=== PATIENT | male | born 2000 | race Caucasian/White ===

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

== ENCOUNTER → 2021-12-18 14:45 | Outpatient (CLI) | payer BC, SELFPAY ==
--- NOTE | 2021-12-18 15:02 | ECG_ITS ---
APPROVED REPORT Exam: Resting ECG HR:56 bpm ECG Measurements Heart Rate 56 AXES WA 136 P 75 QRSd 91 QRS 95 QT 406 T 6 QTc 397 Conclusion SINUS BRADYCARDIA WITH MARKED SINUS ARRHYTHMIA BORDERLINE RIGHT AXIS DEVIATION [QRS AXIS > 90] Otherwise a normal ECG Electronically signed by : Parth Davis MD 12/22/2021 10:41:46
== END ==
PROVIDERS: PCP Internal Medicine; Visit Provider Internal Medicine
DX: R00.2 Palpitations (principal); R55 Syncope and collapse
CPT/HCPCS: 93005

== ENCOUNTER 2024-06-25 13:40 | Outpatient (CLI) | payer BC, SELFPAY ==
--- NOTE | 2024-06-25 13:44 | XR_ITS ---
FINAL REPORT TECHNIQUE: 5 views CLINICAL HISTORY: felt pop in lower back while lifting weights FINDINGS: There is no fracture present. There is no malalignment. The disc spaces are well-preserved. There is moderate facet sclerosis. IMPRESSION: No acute process. Reviewed, Interpreted and Dictated by Ko Owen MD Transcribed by Yadira Arias Authenticated and [facility]
== END 2024-06-25 23:59 | disposition home or self-care (01) ==
LOC: RAD 13:41
PROVIDERS: PCP Internal Medicine; Visit Provider Nurse Practitioner
DX: M54.50 Low back pain, unspecified (principal)
CPT/HCPCS: 72110

== ENCOUNTER → 2024-10-06 13:48 | Outpatient (REF) | payer SELFPAY ==
--- OUTSIDE RECORDS SUMMARY | 2024-10-06 13:50 | XMS_ITS | Clinical Summary ---
Author Organization [facility] [place] [address] Care Team Providers Care Sketcher Name Role Phone Unavailable Primary Care Provider Unavailabl e Social History Tobacco Use Types Packs/Day Years Used Date Smoking Tobacco: Never Assessed Sex and Gender Information Value Date Recorded Sex Assigned at Not on file Legal Sex Male 8:26 AM EDT Gender Identity Not on file Sexual Orientation Not on file Plan of Treatment Health Maintenance Due Date Last Done Comments Annual Wellness Exam 2004 HPV (1 - Male 3-dose series) 2016 Meningococcal B Vaccine (1 o f 2 - Standard) 2017 DTaP/TDaP/Td (1 - Tdap) 2020 Hepatitis B Vaccine (1 of 3 - 19+ 3-dose series) 2020 COVID-19 Vaccine ( - 2023-2 5 season) 2023 Influenza Vaccine (#1) 2024 Pneumococcal Vaccine 0-49 Aged Out No longer eligible based on patient's age to complete this topic
--- OUTSIDE RECORDS SUMMARY | 2024-10-06 13:51 | XMS_ITS | Clinical Summary ---
Author Organization [employer] ([place], [place], [place], [place]) Address [address] [place] [address] Care Team Providers Care Back Sizer Name Role Phone Parth Davis MD Primary Care Provider [phone] Allergies No known active allergies Medications propranoloL (INDERAL) 10 MG tabletIndicatio ns:Palpitations Take 1 tablet (10 mg total) by mouth 2 (two) times daily as needed TAKE 1 TABLET (10 MG TOTAL) BY MOUTH 2 (TWO) TIMES DAILY NEEDED (PALPITATIONS ). Courtesy fill.. 180 tablet 11/18/2023 Active Active Problems Problem Noted Date Diagnosed Date Palpitation 04/26/2022 Near syncope 04/26/2022 Intermittent chest pain 04/26/2022 Bradycardia 04/26/2022 Osteochondritis dissecans 05/06/2015 Family History Medical History Relation Name Comments Aortic aneurysm Father Heart attack Paternal Grandfather Hyperlipidemia Paternal Grandmother Hypertension Paternal Grandmother Stroke Paternal Grandmother Relation Name Status Comments Father Paternal Grandfather Paternal Grandmother Social History Tobacco Use Types Packs/Day Years Used Date Smoking Tobacco: Never Smokeless Tobacco: Never Alcohol Use Standard Drinks/Week Comments Yes 0 (1 standard drink = 0.6 oz pur e alcohol) Food Insecurity Answer Date Recorded Food run out past 12 months Not on file 03/11 Food did not last past 12 months Not on file 03/29/2023 Employment Answer Date Recorded Help finding and keeping a job Not on file 0 03/29/2023 Family and Community Support Answer Jonny e Recorded Help with Day to Day Activities Not on file 03/29/2023 Feeling Lonely or Isolated Not on file 03/29 Educational Attainment Answer Date Elias rded Speak language other than Irish at home Not on file 03/29/2023 Want help with school or training Not on file 03/29/2023 Substance Use Answer Date Recorded Used prescription meds for non-medical reasons N ot on file 03/29/2023 Used illegal drugs past 12 months Not on file 03/29/2023 Sex and Gender Information Value Date Recorded Sex Assigned at Not on file Legal Sex Male 7:48 PM CDT Gender Identity Not on file Sexual Orientation Not on file Last Filed Vital Signs Vital Sign Reading Time Taken Comments Blood Pressure 109/63 11/08/2022 10:22 AM EDT Pulse 72 11/08/2022 10:22 AM EDT Temperature - - Respiratory Rate - - Oxygen Saturation 98% 11/08/2022 10:22 AM EDT Inhaled Oxygen Concentration - - Weight 91.2 kg (201 lb) 11/08/2022 10:22 AM EDT Height 188 cm (6' 2 ) 11/08/2022 10:22 AM EDT Body Mass Index 25.81 11/08/2022 10:22 AM EDT Plan of Treatment Health Maintenance Due Date Last Done Comments Depression Screening (12+) 2013 HIV Screening 2016 Meningococcal B Vaccine (1 o f 2 - Standard) 2017 Hepatitis C Screening 07/18/2019 DTAP/TDAP/TD VACCINES (1 - Tdap) 2020 Tobacco Cessation Counseling and Screening (12+) 11/09/2023 11/08/2022 COVID-19 VACCINE (2 - 2023-2 5 season) 2023 12/01/2020 Influenza Vaccine (#1) 2024 Pneumococcal Vaccine: 0-49 Years Aged Out No longer eligible based on patient's age [place] [id number] BLUE CROSS/BLUE SHIELD Care Teams Back Sizer Relationship Specialty Start Date End Date Parth Davis MD [address] [place] [address] PCP - General General Internal Medicine 04/25/22
--- OUTSIDE RECORDS SUMMARY | 2024-10-06 13:51 | XMS_ITS | Referral Summary ---
Author Organization [employer] ([place], [place], [place], [place]) Address [address] [place] [address] Care Team Providers Care Toy Stuffer Name Role Phone Parth Davis MD Primary Care Provider [phone] Allergies No known active allergies Medications propranoloL [...] pain 04/26/2022 Bradycardia 04/26/2022 Osteochondritis dissecans 05/06/2015 Social History Tobacco Use Types Packs/Day Years [...] Date Elias rded Speak language other than Puerto Rican at home Not on file 03/29/2023 Want [...] 11/08/2022 10:22 AM EDT Plan of Treatment Not on file Insurance BLUE CROSS/BLUE SHIELD Care Teams Toy Stuffer Relationship Specialty Start Date End Date Parth Davis MD [address] [place] [address] PCP - General General Internal Medicine 04/25/22
--- OUTSIDE RECORDS SUMMARY | 2024-10-06 13:51 | XMS_ITS | Encounter Summary ---
Author Organization [employer] ([place], [place], [place], [place]) Address [address] [place] [address] Care Team Providers Care Warp Tying Machine Knotter Name Role Phone Parth Davis MD Primary Care Provider [phone] Reason for Visit * Reason Comments Medication Refill Encounter Details Date Type Department Care Team (Late st Contact Info) Description 11/16/2023 Refill [facility] Cardiology - [address] [place] [address] Maritza Sánchez MD [address] [place] [address] Palpitations Social History Tobacco Use Types Packs/Day Years [...] Date Elias rded Speak language other than Welsh at home Not on file 03/29/2023 Want [...] on file Sexual Orientation Not on file documented as of this encounter Plan of Treatment Not on file documented as of this encounter Visit Diagnoses Diagnosis Palpitations documented in this encounter Care Teams Warp Tying Machine Knotter Relationship Specialty Start Date End Date Parth Davis MD [address] [place] [address] PCP - General General Internal Medicine 04/25/22 documented as of this encounter
--- OUTSIDE RECORDS SUMMARY | 2024-10-06 13:51 | XMS_ITS | Clinical Summary ---
Author Organization [facility] Address [address] [place] [address] Care Team Providers Care Director Of Placement Name Role Phone Dread Vo M.D. Primary Care Provider Source Comments [facility] is fully rolled out with thefollowing exceptions:[facility] Allergies No known active allergies Medications oxyCODONE (ROXICODONE) 5 MG tablet Take 1 Tab (5 mg total) by mouth every 4 hours as needed for moderate pain. Was informed consent obtained? Yes If informed consent was not obtained, the applicable exemption is - Consent form was completed; no exemption needed 30 Tab 6 Active Active Problems Problem Noted Date Diagnosed Date Osteochondritis dissecans 05/06/2015 Social History Tobacco Use Types Packs/Day Years Used Date Smoking Tobacco: Never Intimate Partner Violence Answer Date R ecorded If you are in a relationship , do you feel safe in that relationship? Yes 12/28/2015 Safe in relationship? (18 and older) Not on file 12/28/2015 Safety and Environment Answer Date Elias rded Do you have any concerns of physical abuse, sexual abuse, or neglect of your child? No 12/28/2015 Adult hurting you or family (11-18) Not on file 12/28/2015 Someone touched you in a sexual way? (11-18) Not on file 12/28/2015 Someone hurting you or family (18 and older) Not on file 12/28/2015 Historical abuse worry Not on file 6 If you have firearms in the home, are they all in locked storage AND unloaded? Not on file 12/28/2015 Sex and Gender Information Value Date Recorded Sex Assigned at Not on file Legal Sex Male 12:29 PM EST Gender Identity Not on file Sexual Orientation Not on file Last Filed Vital Signs Vital Sign Reading Time Taken Comments Blood Pressure 93/52 05/24/2015 5:30 PM EDT Pulse 72 05/24/2015 5:30 PM EDT Temperature 36.1 C (97 F) 05/24/2015 5:00 PM EDT Respiratory Rate 16 05/24/2015 5:30 PM EDT Oxygen Saturation 99% 05/24/2015 5:45 PM EDT Inhaled Oxygen Concentration - - Weight 69.8 kg (153 lb 14.1 oz) 05/24/2015 9:38 AM EDT Height 166.8 cm (5' 5.67 ) 05/24/2015 9:38 AM ED T Body Mass Index 25.09 05/24/2015 9:38 AM EDT Plan of Treatment Health Maintenance Due Date Last Done Comments MMR IMMUNIZATION (1 of 1 - S tandard series) 2002 DTAP/Tdap/Td IMMUNIZATION (1 - Tdap) 2008 VARICELLA IMMUNIZATION (1 of 2 - 13+ 2-dose series) 2014 HPV IMMUNIZATION (1 - Male 3 -dose series) 2016 MENINGOCOCCAL B VACCINE (1 o f 2 - Standard) 2017 HEPATITIS B IMMUNIZATION (1 of 3 - 19+ 3-dose series) 2020 COVID-19 Vaccine (1 - 2023-2 5 season) 2023 AMB SEASONAL FLU VACCINE (#1) 11/09/2024 HIB IMMUNIZATION Aged Out No longer e ligible based on patient's age to complete this topic IPV IMMUNIZATION Aged Out No longer e ligible based on patient's age to complete this topic MCV4 IMMUNIZATION Aged Out No longer eligible based on patient's age to complete this topic PNEUMOCOCCAL IMMUNIZATION Aged Out No longer eligible based on patient's age to complete this topic Respiratory Syncytial Virus (RSV) <20mo Aged Out No longer eligible b ased on patient's age to complete this topic Medical Devices Implanted Type Area Wheel And Axle Inspector Device Identifier Shelf Expiration Date Model / Serial / Lot Wire Meryl 5 7/8in 1.6mm Smooth Trocar/Plain N/S Mtrl/Tit - [id number] Implanted:Qty : 1 on 05/24/2015 by Barrett Koch M.D. at [facility] Implant Orthopedic Surg wire [employer] [id number] / / Wire K Non Trd .062in - [id number] Implanted:Qty : 6 on 05/24/2015 by Barrett Koch M.D. at [facility] Surgical Impl/Expd/Extd /Surg Wire [employer] [id number] / / Insurance on file Care Teams Director Of Placement Relationship Specialty Start Date End Date Dread Vo M.D. [address] [place] [address] [address] [place] [address] PCP - General External Pediatrics 02/08/15
--- OUTSIDE RECORDS SUMMARY | 2024-10-06 13:51 | XMS_ITS | Clinical Summary ---
Author Organization [facility] Address [address] [place] [address] Care Team Providers Care Driller'S Offsider Name Role Phone aPrth Davis MD Primary Care Provider [phone] Allergies No known active allergies Medications propranolol (INDERAL) 10 MG tablet TAKE 1 TABLET (10 MG TOTAL) BY MOUTH 2 (TWO) TIMES DAILY NEEDED (PALPITATIO NS).. 06/24/2023 Active sertraline (ZOLOFT) 50 MG tablet Take 1 tablet by mouth Daily. 06/06/2023 Active doxycycline (MONODOX) 100 MG capsuleIndicatio ns:Dysuria 1 po bid 14 capsule 06/29/2023 Active Social History Tobacco Use Types Packs/Day Years Used Date Smoking Tobacco: Never Smokeless Tobacco: Never Alcohol Use Standard Drinks/Week Comments Yes 0 (1 standard drink = 0.6 oz pur e alcohol) AUDIT-C Answer Date Recorded Q1: How often do you have a drink containing alc ohol? Never 02/03/2020 Average Number of Drinks Not on file 020 Frequency of Binge Drinking Not on file 01/10 Abuse Screen Answer Date Recorded Unsafe at Home or Work/School Not on file Feels Threatened by Someone? Not on file 09/2023 Does Anyone Keep You from Co ntacting Others or Doint Things Outside the Home? Not on file 04/17/2023 Physical Sign of Abuse Present Not on file 0 04/17/2023 Housing Stability Answer Date Recorded Current Living Arrangements Not on file 11/2022 Potentially Unsafe Housing Conditions Not on mavis e 12/17/2022 Family and Community Support Answer Jonny e Recorded Help with Day-to-Day Activities Not on file 12/17/2022 Lonely or Isolated Not on file 12/17/2022 Employment Answer Date Recorded Do you want help finding or keeping work or a marnie b? Not on file 12/17/2022 Disabilities Answer Date Recorded Concentrating, Remembering, or Making Decisions Difficulty Not on file 12/17/2022 Doing Errands Independently Difficulty Not on fi le 12/17/2022 Education Answer Date Recorded Help with school or training? Not on file Preferred Language Not on file 12/17/2022 Sex and Gender Information Value Date Recorded Sex Assigned at Not on file Legal Sex Male 11:52 AM EDT Gender Identity Not on file Sexual Orientation Not on file Last Filed Vital Signs Vital Sign Reading Time Taken Comments Blood Pressure 145/85 06/29/2023 11:07 AM EDT Pulse 93 06/29/2023 11:07 AM EDT Temperature 36.8 C (98.2 F) 06/29/2023 11:07 AM EDT Respiratory Rate 20 06/29/2023 11:07 AM EDT Oxygen Saturation 100% 06/29/2023 11:07 AM EDT Inhaled Oxygen Concentration - - Weight 86.2 kg (190 lb) 06/29/2023 11:07 AM EDT Height 188 cm (6' 2 ) 06/29/2023 11:07 AM EDT Body Mass Index 24.39 06/29/2023 11:07 AM EDT Plan of Treatment Health Maintenance Due Date Last Done Comments ANNUAL PHYSICAL 2001 HEPATITIS C SCREENING 2001 MENINGOCOCCAL B VACCINE (1 o f 2 - Standard) 2017 TDAP/TD VACCINES (1 - Tdap) 2020 COVID-19 Vaccine (2 - 2023-2 5 season) 2023 12/01/2020 INFLUENZA VACCINE 12/09/2024 Pneumococcal Vaccine 0-49 Aged Out No longer eligible based on patient's age to complete this topic Insurance PPO Care Teams Driller'S Offsider Relationship Specialty Start Date End Date Parth Davis MD [address] [facility] [address] [place] [id number] PCP - General Internal Medicine 06/29/23
--- OUTSIDE RECORDS SUMMARY | 2024-10-06 13:51 | XMS_ITS | Clinical Summary ---
Author Organization [facility] Address [address] [place] [address] Care Team Providers Care Medical Office Manager Name Role Phone Unavailable Primary Care Provider Unavailabl e Family History Medical History Relation Name Comments Conversions - Other Father Healthy adolescent Conversions - Other Mother Healthy adolescent Relation Name Status Comments Father Mother Social History Tobacco Use Types Packs/Day Years Used Date Smoking Tobacco: Never Sex and Gender Information Value Date Recorded Sex Assigned at Not on file Legal Sex Male 8:09 PM EDT Gender Identity Not on file Sexual Orientation Not on file Last Filed Vital Signs Vital Sign Reading Time Taken Comments Blood Pressure - - Pulse - - Temperature - - Respiratory Rate - - Oxygen Saturation - - Inhaled Oxygen Concentration - - Weight 65.8 kg (144 lb 15.9 oz) 02/07/2015 8:55 AM EST Height 165.1 cm (5' 5 ) 02/07/2015 8:55 AM EST Body Mass Index 24.13 02/07/2015 8:55 AM EST Plan of Treatment Not on file
[2024-10-06 14:07] LABS: COC Drug Screen Collection Only
== END ==
LOC: LAB 13:48
PROVIDERS: Visit Provider Nurse Practitioner